=== PATIENT | female | born 1980 | race Two or more races ===

== ENCOUNTER 2018-02-25 17:31 | Emergency (ER) | payer SELFPAY ==
[~2018-02-25] VITALS: Ht 152.4 cm; Wt 88.0 kg
[2018-02-25] MEDS ORDERED: DIPHENHYDRAMINE 50MG CAPSULE PO ONE (23:30)
[2018-02-25] MEDS ORDERED: PREDNISONE 20MG TABLET PO ONE (23:30)
[2018-02-26 00:01] VITALS: BP 128/86
== END 2018-02-26 00:03 | disposition home or self-care (01) ==
LOC: ER 17:31
DX: T78.1XXA Other adverse food reactions, not elsewhere classified, initial encounter (principal); X58.XXXA Exposure to other specified factors, initial encounter
CPT/HCPCS: 99283; J7512; Q0163

== ENCOUNTER 2018-05-23 15:07 | Emergency (ER) | payer MEDICAID ==
[~2018-05-23] VITALS: Ht 160 cm; Wt 75.8 kg
[2018-05-23] MEDS ORDERED: HYDROCODONE/ACETAMINOPHEN 5/325MG TABLET PO ONE (19:15)
[2018-05-23 23:19] VITALS: BP 137/69
== END 2018-05-24 00:03 | disposition home or self-care (01) ==
LOC: ER 15:07
DX: S05.02XA Injury of conjunctiva and corneal abrasion without foreign body, left eye, initial encounter (principal); S09.8XXA Other specified injuries of head, initial encounter; W22.8XXA Striking against or struck by other objects, initial encounter; Y93.89 Activity, other specified; Y92.89 Other specified places as the place of occurrence of the external cause; Y99.8 Other external cause status
CPT/HCPCS: 70486; 81025; 99284

== ENCOUNTER 2024-03-17 16:57 | Emergency (ER) | payer SELFPAY ==
[~2024-03-17] VITALS: Ht 165.1 cm; Wt 78.0 kg
[2024-03-17 17:20] VITALS: O2SAT 99
[2024-03-17] MEDS: ACETAMINOPHEN 500MG TABLET PO ONE (21:15)
[2024-03-17] MEDS ORDERED: LIDO700A15 TP (21:33)
[2024-03-17] MEDS ORDERED: NAPR-1176 MT (21:33)
[2024-03-17 22:11] VITALS: BP 158/70; PULSE 76; RESP 18; TEMP 36.83628; O2SAT 99
== END 2024-03-17 22:11 | disposition home or self-care (01) ==
LOC: ER 16:57
DX: M25.562 Pain in left knee (principal); Z79.1 Long term (current) use of non-steroidal anti-inflammatories (NSAID)
CPT/HCPCS: 73560; 99283